=== PATIENT | female | born 1945 | race Caucasian/White ===

== ENCOUNTER 2016-09-18 06:35 | Emergency (ER) | payer MEDICARE, OTHER ==
--- NOTE | ~2016-09-18 | ER ---
PATIENT'S NAME: GOLDY [facility] AGE: 70 Y [address] ROOM: [place] [address] LOCATION: [facility] ADMIT DATE: 09/18/2016 ER/Outpatient Report DISCHARGE DATE: 09/18/2016 FAMILY PHYSICIAN: Shira Whitlock Pa-C ATTENDING PHYSICIAN: Robby Hall CHIEF COMPLAINT: Right-sided head pain. HISTORY OF PRESENT ILLNESS: The patient states that she was traveling from her home in [place], [place] to [place] to see family. Last night while staying in a hotel, she developed some pain in the right side of her head. She has had similar pain to this in the past and is attributed to a nerve issue. She denies any fevers or vision changes and the symptoms are not present when she is eating or talking. 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 She took some ibuprofen prior to arrival this morning. PAST MEDICAL HISTORY: Documented on the record and reviewed by me. SOCIAL HISTORY: Documented on the record and reviewed by me. MEDICATIONS: Documented on the record and reviewed by me. ALLERGIES: DOCUMENTED ON THE RECORD AND REVIEWED BY ME. REVIEW OF SYSTEMS: All systems reviewed and negative except as noted in the HPI. PHYSICAL EXAMINATION: VITAL SIGNS: Blood pressure 142/83, pulse 80, respiratory rate is 20, temperature 96.8, SpO2 is 95% on room air. Pain is rated at 8/10. GENERAL: An age-appropriate female, sitting upright in the exam chair, in no obvious pain or distress. NEUROLOGIC: Awake, alert. GCS 15. No focal deficits or asymmetry. Extraocular movements are intact. Vision is normal to gross inspection. No other abnormalities. HEENT: Normocephalic, atraumatic. The left TM is normal with slight evidence of pressure, but no purulence, no erythema. Right TM is normal to inspection with slight evidence of inner ear pressure with no erythema or purulence, no fluid detected. The canal is normal to inspection and clear. There is no PAT[facility]GE[facility] 70 Y [address] ROOM: [place] [address] LOCATION: [facility] ADMIT DATE: 09/18/2016 ER/Outpatient Report DISCHARGE DATE: 09/18/2016 FAMILY PHYSICIAN: Shira Whitlock Pa-C ATTENDING PHYSICIAN: Robby Hall tenderness over the mastoid process. Slight tenderness over the TMJ on the right side. Eyes: Extraocular movements are intact. Pupils are PERRL. Vision is grossly intact. Nasal and oral mucosa are normal to inspection. Moist and pink. NECK: Supple. Trachea is midline. No cervical adenopathy is appreciated. No tenderness over the mastoid process bilateral. CHEST/HEART: Regular rate and rhythm with no murmurs. LUNGS: Clear to auscultation bilateral. No rhonchi, wheezes, or rales. ABDOMEN: Benign to inspection and palpation. EXTREMITIES: Grossly normal. SKIN: Warm, dry, and intact. LABORATORY DATA AND X-RAYS: None. IMPRESSION: Pain at the right side of the face, uncertain etiology, possibly temporomandibular joint. EMERGENCY DEPARTMENT COURSE: The patient was evaluated as above. There are no findings consistent with otitis media or otitis externa. No tenderness at the mastoid process indicates not TMJ. No claudication or tenderness over the temporal region consistent with temporal arteritis. She does not have any skin changes consistent with shingles or herpes. Slight tenderness at the TMJ indicates this may be related to TMJ pain. Unclear at this time. She was treated with a shot of Toradol in the emergency department. Recommend anti-inflammatories and follow up with primary care provider as needed. At this time, I do not see a reason for her to not continue on her journey. She should be seen immediately if this is continuing to worsen, however. MD NEGIN HUNTER/tylerl /[id number] d: 09/18/161710 t: 09/19/16 0642, OUTPATIENT REPORT
== END 2016-09-18 07:10 | disposition disaster alternative care site (69) ==
LOC: GMED 06:35
DX: R51 Headache (principal)
CPT/HCPCS: J1885